=== PATIENT | female | born 1970 | race Caucasian/White ===

== ENCOUNTER → 2017-09-17 | Outpatient (CLI) | payer BC ==
[~2017-09-17] MED LIST: BIOTPOW17; IBUP-1050 PO; LORA-741 PO; ONDA4TAB7 SL; TRAM-453 PO
== END | disposition home or self-care (01) ==
LOC: C.PAPS 09:37
PROVIDERS: ATTEND Physician Assistant
DX: Z01.419 Encounter for gynecological examination (general) (routine) without abnormal findings (principal)